=== PATIENT | male | born 1985 | race Caucasian/White ===

== ENCOUNTER 2016-03-31 22:32 | Emergency (ER) | payer OTHER ==
[~2016-03-31] VITALS: Ht 167.6 cm; Wt 78.0 kg
[~2016-03-31 22:32] MED LIST: BEN25 PO; CEPH-443 PO; IBUP800T25 PO; PRED20TA PO
[2016-03-31 23:09] VITALS: Ht 167.6 cm; Wt 78.0 kg
--- NOTE | 2016-03-31 23:36 | ERA ---
ER Documentation Chief Complaint Date/Time DATE: 03/31/16 TIME: 23:35 Chief Complaint Headache and abdominal pain HPI The patient is a 30-year-old male, presenting to the ER because of headache and abdominal pain and intermittent cough that began about 7 PM. The headache is of vague, denied dizziness, syncope, near syncope; the abdominal pain is diffuse , no radiation. He denies fever, chills, neck pain, chest pain, dyspnea. He denies dysuria, polyuria, diarrhea, constipation. He only vomited mucus, complains of muscle spasm. He smokes, denies drinking, denies illicit drug Past medical/surgical history: ROS All systems reviewed and are negative except as per history of present illness. Medications Home Meds Active Scripts Ibuprofen* (Motrin*) 600 Mg Tab, 600 MG PO Q6H Y for PAIN AND OR ELEVATED TEMP, #30 TAB Prov:SHEELA ZHOU MD 04/01/16 Diphenhydramine Hcl* (Benadryl*) 25 Mg Cap, 25 MG PO Q6 Y for ITCHING/RASH, #30 TAB Prov:ANYA HEARN DO 08/20/15 Cephalexin* (Keflex*) 500 Mg Capsule, 500 MG PO QID for 5 Days, CAP Prov:BORHANI,LAURAOSH DO 08/20/15 Prednisone* (Prednisone*) 20 Mg Tab, 40 MG PO DAILY for 4 Days, TAB Prov:BORHANI,LAURAOSH DO 08/20/15 Cephalexin* (Keflex*) 500 Mg Capsule, 500 MG PO QID for 7 Days, CAP Prov:BORKATHRYNINAYA DO 08/20/15 Diphenhydramine Hcl* (Benadryl*) 25 Mg Cap, 25 MG PO Q6 Y for ITCHING/RASH, #30 TAB Prov:BORKATHRYNINAYA DO 08/20/15 Prednisone* (Prednisone*) 20 Mg Tab, 40 MG PO DAILY for 4 Days, TAB Prov:BORKATHRYNINAYA DO 08/20/15 Ibuprofen* (Motrin*) 800 Mg Tab, 800 MG PO Q6H Y for PAIN AND OR ELEVATED TEMP, #30 TAB Prov:PHYLLIS SWANN MD 06/30/15 Allergies Allergies: Coded Allergies: No Known Allergy (Unverified , 08/20/15) PMhx/Soc History of Surgery: No Anesthesia Reaction: No Hx Neurological Disorder: No Hx Respiratory Disorders: No Hx Cardiac Disorders: No Hx Psychiatric Problems: No Hx Miscellaneous Medical Probl: No Hx Alcohol Use: No Hx Substance Use: No Hx Tobacco Use: No Physical Exam Vitals Vital Signs Date Time Temp Pulse Resp B/P Pulse Ox O2 Delivery O2 Flow Rate FiO2 04/01/16 03:09 99.2 73 18 102/55 100 Room Air 03/31/16 23:09 98.8 119 20 138/68 98 Physical Exam Const: No acute distress. Head: Atraumatic. Eyes: Normal Conjunctiva. ENT: Normal External Ears, Nose and Mouth. Neck: Full range of motion. No meningismus. Resp: Clear to auscultation bilaterally. Cardio: Regular rate and rhythm, no murmurs. Abd: Soft, non distended, normal bowel sounds, vague and diffuse abdominal tenderness, no rigidity, rebound, CVA tenderness Skin: No petechiae or rashes. Back: No midline or flank tenderness. Ext: No cyanosis, or edema. Neur: Awake and alert. No focal deficit Psych: Normal Mood and Affect. Result Diagram: 03/31/16 2348 03/31/16 2345 Results 24 hrs Laboratory Tests Test 03/31/16 23:45 03/31/16 23:48 04/01/16 00:50 04/01/16 00:53 Alanine Aminotransferase (ALT/SGPT) 34IU/L Albumin 4.9g/dl Albumin/Globulin Ratio 1.25 Alkaline Phosphatase 87IU/L Anion Gap 20 Aspartate Amino Transf (AST/SGOT) 26IU/L Blood Urea Nitrogen 11mg/dl Calcium Level 9.8mg/dl Carbon Dioxide Level 25mmol/L Chloride Level 100mmol/L Creatinine 0.92mg/dl Direct Bilirubin 0.00mg/dl Ethyl Alcohol Level < 10.0mg/dl Globulin 3.90g/dl Glucose Level 100mg/dl Indirect Bilirubin 1.1mg/dl Lipase 30U/L Potassium Level 3.9mmol/L Sodium Level 141mmol/L Total Bilirubin 1.1mg/dl Total Protein 8.8g/dl Basophils # 0.010^3/ul Basophils % 0.2% Eosinophils # 0.010^3/ul Eosinophils % 0.1% Hematocrit 47.6% Hemoglobin 16.2g/dl Lymphocytes # 0.910^3/ul Lymphocytes % 5.4% Mean Corpuscular Hemoglobin 29.5pg Mean Corpuscular Hemoglobin Concent 34.0g/dl Mean Corpuscular Volume 86.9fl Mean Platelet Volume 9.0fl Monocytes # 0.810^3/ul Monocytes % 5.3% Neutrophils # 13.910^3/ul Neutrophils % 89.0% Nucleated Red Blood Cells # 0.010^3/ul Nucleated Red Blood Cells % 0.0/100WBC Platelet Count 19698^3/UL Red Blood Count 5.4710^6/ul Red Cell Distribution Width 13.0% White Blood Count 15.610^3/ul Urine Amphetamines Screen NEGATIVE Urine Barbiturates NEGATIVE Urine Benzodiazepines Screen NEGATIVE Urine Cannabinoids NEGATIVE Urine Cocaine Screen NEGATIVE Urine Opiates Screen NEGATIVE Bedside Urine Blood Negative Bedside Urine Glucose (UA) Negative Bedside Urine Ketones (LAB) Trace Bedside Urine Leukocyte Esterase (L Negative Bedside Urine Nitrite (LAB) Negative Bedside Urine Protein (LAB) 2+ Bedside Urine pH (LAB) >=9.0 Current Medications Medications (Trade) Dose Ordered Sig/Hawa Route PRN Reason Start Time Stop Time Status Last Admin Dose Admin Sodium Chloride (NS) 1,000 ml @ 1,000 mls/hr Q1H STAT IV 03/31/16 23:42 04/01/16 00:41 DC 03/31/16 23:53 Ondansetron HCl (Zofran Inj) 4 mg ONCE STAT IV 03/31/16 23:42 03/31/16 23:45 DC 03/31/16 23:53 Lorazepam (Ativan) 1 mg ONCE ONCE IV 04/01/16 00:00 04/01/16 00:01 DC 03/31/16 23:53 Ketorolac Tromethamine (Toradol) 30 mg ONCE STAT IV 04/01/16 01:09 04/01/16 01:10 DC 04/01/16 02:02 Procedures/[place] [id number] Radiology Main Line: [phone] DIAGNOSTIC IMAGING REPORT Patient: ROXANE CORNEJO : 1985 Age: 30 Sex: M MR #: [id number] DOS: 03/31/16 2342 Ordering MD: SHEELA ZHOU MD Location: E/R Room/Bed: PROCEDURE: CHEST - 1 VIEW CLINICAL INDICATION: 30-year-old male with chest/abdominal pain. TECHNIQUE: A single frontal AP upright view of the chest was performed portably. The images were reviewed on a PACS workstation. COMPARISON: None. FINDINGS: The cardiomediastinal silhouette has a normal appearance. There is no evidence for an infiltrate. The pulmonary vascularity is within normal limits. There is no evidence for pneumothorax or pneumomediastinum. The osseous structures are intact. IMPRESSION: No evidence for active cardiopulmonary disease. .Cash Wesley MD, MD Date Time Electronically viewed and signed by .Cash Wesley MD, MD on 04/01/2016 00:28 .M/ CC: SHEELA ZHOU MD [place] [address] Radiology Main Line: [phone] DIAGNOSTIC IMAGING REPORT Patient: ROXANE CORNEJO : 1985 Age: 30 Sex: M MR #: [id number] DOS: 03/31/16 2342 Ordering MD: SHEELA ZHOU MD Location: E/R Room/Bed: PROCEDURE: CT BRAIN WITHOUT CONTRAST CLINICAL INDICATION: 30-year-old male with change in mental status and weakness. TECHNIQUE: The study was performed utilizing a [employer] 64-slice CT scanner. Direct axial sections were obtained from the foramen magnum to the vertex without the use of intravenous contrast material. Sagittal and coronal reformations were obtained. Automated exposure control and iterative reconstruction techniques were utilized for this examination. The images were viewed on a PACS workstation. CTD/vol = 45.0 mGy; Total Exam DLP = 810.3 mGy- cm. COMPARISON: None. FINDINGS: There is mild motion artifact limiting evaluation to some extent. The ventricles have a normal size, shape and position. There is no evidence for mass effect or midline shift. There are no intracranial areas of abnormal attenuation. There is no evidence for acute intra or extra-axial blood. The bony calvarium is intact. The partially visualized paranasal sinuses and mastoid air cells are without significant abnormal soft tissue. IMPRESSION: Unremarkable noncontrast CT scan of the brain. .Cash Wesley MD, Date Time Electronically viewed and signed by .Cash Wesley MD, on 04/01/2016 00:38 .M/ CC: SHEELA ZHOU MD [place] [address] Radiology Main Line: [phone] DIAGNOSTIC IMAGING REPORT Patient: ROXANE CORNEJO : 1985 Age: 30 Sex: M MR #: [id number] DOS: 03/31/16 2342 Ordering MD: SHEELA ZHOU MD Location: E/R Room/Bed: PROCEDURE: CT ABDOMEN/PELVIS WITHOUT CONTRAST CLINICAL INDICATION: 30-year-old male with abdominal pain. TECHNIQUE: The study was performed utilizing a [employer] VCT 64-slice CT scanner. Direct axial sections were obtained through the abdomen and pelvis without the use of intravenous contrast material. Sagittal and coronal reformations were obtained. Automated exposure control and iterative reconstruction techniques were utilized for this examination. The images were reviewed on a PACS workstation. CTD/vol = 11.8 mGy; Total Exam DLP = 761.8 mGy -cm. COMPARISON: None. FINDINGS: There is trace bibasilar subsegmental atelectasis. There is no evidence for significant pleural effusion. The liver has a normal size and contour without focal areas of abnormal density. No intrahepatic nor extrahepatic biliary ductal dilatation is seen. The gallbladder demonstrates no wall thickening nor pericholecystic fluid. No biliary stones are evident. The pancreas is without areas of abnormal attenuation. The spleen is identified and has a normal size without abnormal density. The adrenal glands are unremarkable. The right kidney is without abnormal density, calculi or obstruction. There is a nonobstructing mid-left renal 2 x 2 mm calculus on axial image 3-68. There is no evidence for hydroureteronephrosis.. The urinary bladder contains urine. There is mild retained stool within the ascending and transverse colon without obstruction. The appendix is visualized and is without abnormal thickening or surrounding inflammatory reaction. There is no significant free fluid. The aortoiliac vessels are without aneurysmal dilatation. The osseous structures are intact. IMPRESSION: 1. Nonobstructing 2 mm left mid renal calculus. 2. Retained stool without evidence for bowel obstruction. 3. No CT evidence for appendicitis. .Cash Wesley MD, Date Time Electronically viewed and signed by .Cash Wesley MD, MD on 04/01/2016 00:59 .M/ CC: SHEELA ZHOU MD MEDICAL MAKING DECISION: The patient is a 30-year-old male, presenting with acute anxiety, acute cephalgia of unclear etiology, acute left renal colic. He was treated with Ativan 1 mg IV for acute anxiety, Zofran 4 mg IV for nausea, Toradol 30 mg IV for abdominal pain and 1 L normal saline for acute clinical dehydration with good response. On multiple reevaluation, he felt well. Repeat abdominal exam was unremarkable. The differential diagnoses for acute headache considered include but are not limited to subarachnoid hemorrhage, occult trauma, CVA, meningitis, encephalitis, hypertension, tension, migraine, cluster, narcotic withdrawal, cervical spine disease. The differential diagnoses for acute abdominal pain considered include but are not limited to cholelithiasis, cholecystitis, cystitis, pancreatitis, hepatitis, gastritis, peptic ulcer disease, gastric ulcer, appendicitis, diverticulitis, cholangitis, choledocholithiasis, partial small bowel obstruction. Departure Diagnosis: Primary Impression: Acute anxiety Additional Impressions: Cephalgia Renal colic on left side Condition: Good Comments I discussed the findings with the patient. I advised the patient to follow-up with the primary physician in about 1-2 days, sooner if needed and return if any concern. The patient's blood pressure was elevated (>120/80) but appears stable without evidence of hypertension emergency or urgency. The patient was counseled about the risks of hypertension and urged to pursue outpatient monitoring and therapy within a week with their primary care physician. SHEELA ZHOU MD Mar 31, 2016 23:36
[2016-03-31] MEDS ORDERED: SOD CHLORIDE 0.9% 1,000 ML IV STA (23:42)
[2016-03-31] MEDS ORDERED: ONDANSETRON 4 MG INJ IV STA (23:42)
[2016-04-01] MEDS ORDERED: LORAZEPAM 2 MG INJ IV ONE
[2016-04-01 00:17] LABS: ALBUMIN 4.9 g/dl (3.3-4.9)
[2016-04-01 00:18] LABS: CHLORIDE 100 mmol/L (97-110); POTASSIUM 3.9 mmol/L (3.5-5.1); SODIUM 141 mmol/L (135-144)
[2016-04-01 00:20] LABS: ALBUMIN/GLOBULIN RATIO 1.25; ALKALINE PHOSPHATASE 87 IU/L (42-121); ANION GAP 20 (8-16); ASPARTATE AMINO TRANSFERASE 26 IU/L (15-46); BILIRUBIN,INDIRECT 1.1 mg/dl (0-1.1); BILIRUBIN,TOTAL 1.1 mg/dl (0.2-1.3); BLOOD UREA NITROGEN 11 mg/dl (7-20); CARBON DIOXIDE 25 mmol/L (21-31); CREATININE 0.92 mg/dl (0.61-1.24); GLUCOSE 100 mg/dl (70-220); TOTAL PROTEIN 8.8 g/dl (6.1-8.1)
[2016-04-01 00:21] LABS: ALANINE AMINOTRANSFERASE 34 IU/L (13-69); CALCIUM 9.8 mg/dl (8.4-10.2)
[2016-04-01 00:27] LABS: BASOPHILS % 0.2 % (0.0-2.0); EOSINOPHILS % 0.1 % (0.0-7.0); HEMATOCRIT 47.6 % (42.0-52.0); HEMOGLOBIN 16.2 g/dl (14.0-18.0); LYMPHOCYTES # 0.9 10^3/ul (0.8-2.9); LYMPHOCYTES % 5.4 % (15.0-51.0); MEAN CORPUSCULAR HEMOGLOBIN 29.5 pg (29.0-33.0); MEAN CORPUSCULAR VOLUME 86.9 fl (82.0-101.0); MONOCYTE # 0.8 10^3/ul (0.3-0.9); MONOCYTES % 5.3 % (0.0-11.0); NEUTROPHIL # 13.9 10^3/ul (1.6-7.5); PLATELET COUNT 351 10^3/UL (140-440); RED BLOOD COUNT 5.47 10^6/ul (4.70-6.10); UNCORRECTED WBC 15.6 10^3/ul (4.8-10.8); WHITE BLOOD COUNT 15.6 10^3/ul (4.8-10.8)
--- NOTE | 2016-04-01 00:28 | RADRPT ---
PROCEDURE: CHEST - 1 VIEW CLINICAL INDICATION: 30-year-old male with chest/abdominal pain. TECHNIQUE: A single frontal AP upright view of the chest was performed portably. The images were reviewed on a PACS workstation. COMPARISON: None. FINDINGS: The cardiomediastinal silhouette has a normal appearance. There is no evidence for an infiltrate. T he pulmonary vascularity is within normal limits. There is no evidence for pneumothorax or pneumomed iastinum. The osseous structures are intact. IMPRESSION: No evidence for active cardiopulmonary disease. .Cash Wesley MD, MD Date Time Electronically viewed and signed by .Cash Wesley MD, on 04/01/2016 00:28 .M/
[2016-04-01 00:30] LABS: CONDITION 1
--- NOTE | 2016-04-01 00:38 | RADRPT ---
PROCEDURE: CT BRAIN WITHOUT CONTRAST CLINICAL INDICATION: 30-year-old male with change in mental status and weakness. TECHNIQUE: The study was performed utilizing a [employer] VCT 64-slice CT scanner. Direct axia l sections were obtained from the foramen magnum to the vertex without the use of intravenous contra st material. Sagittal and coronal reformations were obtained. Automated exposure control and iterat presley reconstruction techniques were utilized for this examination. The images were viewed on a PACS workstation. CTD/vol = 45.0 mGy; Total Exam DLP = 810.3 mGy-cm. COMPARISON: None. FINDINGS: There is mild motion artifact limiting evaluation to some extent. The ventricles have a normal size , shape and position. There is no evidence for mass effect or midline shift. There are no intracra nial areas of abnormal attenuation. There is no evidence for acute intra or extra-axial blood. The bony calvarium is intact. The partially visualized paranasal sinuses and mastoid air cells are witho ut significant abnormal soft tissue. IMPRESSION: Unremarkable noncontrast CT scan of the brain. .Cash Wesley MD, MD Date Time Electronically viewed and signed by .Cash Wesley MD, on 04/01/2016 00:38 .M/
[2016-04-01 00:53] LABS: URINE BLOOD (Dip) POC Negative (NEGATIVE)
--- NOTE | 2016-04-01 00:59 | RADRPT ---
PROCEDURE: CT ABDOMEN/PELVIS WITHOUT CONTRAST CLINICAL INDICATION: 30-year-old male with abdominal pain. TECHNIQUE: The study was performed utilizing a [employer] VCT 64-slice CT scanner. Direct axia l sections were obtained through the abdomen and pelvis without the use of intravenous contrast mate rial. Sagittal and coronal reformations were obtained. Automated exposure control and iterative shruthi nstruction techniques were utilized for this examination. The [facility] CTD/vol = 11.8 mGy; Total Exam DLP = 761.8 mGy-cm. COMPARISON: None. FINDINGS: There is trace bibasilar subsegmental atelectasis. There is no evidence for significant pleural eff usion. The liver has a normal size and contour without focal areas of abnormal density. No intrahep atic nor extrahepatic biliary ductal dilatation is seen. The gallbladder demonstrates no wall [place] nor pericholecystic fluid. No biliary stones are evident. The pancreas is without areas of abno rmal attenuation. The spleen is identified and has a normal size without abnormal density. The adre nal glands are unremarkable. The right kidney is without abnormal density, calculi or obstruction. There is a nonobstructing mid-left renal 2 x 2 mm calculus on axial image 3-68. There is no evidenc e for hydroureteronephrosis.. The urinary bladder contains urine. There is mild retained stool withi n the ascending and transverse colon without obstruction. The appendix is visualized and is without abnormal thickening or surrounding inflammatory reaction. There is no significant free fluid. The aortoiliac vessels are without aneurysmal dilatation. The osseous structures are intact. IMPRESSION: 1. Nonobstructing 2 mm left mid renal calculus. 2. Retained stool without evidence for bowel obstruction. 3. No CT evidence for appendicitis. .Cash Wesley MD, MD Date Time Electronically viewed and signed by .Cash Wesley MD, MD on 04/01/2016 00:59 .M/
[2016-04-01] MEDS ORDERED: KETOROLAC 30 MG INJ IV STA (01:09)
[2016-04-01 01:44] LABS: ETHANOL < 10.0 mg/dl
[2016-04-01 02:31] LABS: BARBITURATES NEGATIVE (NEGATIVE); BENZODIAZEPINES NEGATIVE (NEGATIVE); CANNABINOIDS NEGATIVE (NEGATIVE); COCAINE NEGATIVE (NEGATIVE); OPIATES NEGATIVE (NEGATIVE)
[2016-04-01] MEDS ORDERED: IBUP-1542 PO (02:38)
[2016-04-01 03:09] VITALS: BP 102/55; PULSE 73; RESP 18; TEMP 99.2
== END 2016-04-01 03:10 | disposition home or self-care (01) ==
LOC: E/R 22:32
DX: F41.9 Anxiety disorder, unspecified (principal); N23 Unspecified renal colic; R07.9 Chest pain, unspecified
CPT/HCPCS: 36415; 70450; 71010; 74176; 80053; 80306; 80307; 81003; 83690; 85025; 96374; 96375; J1885; J2060; J2405; J7030; Z7502

== ENCOUNTER 2016-09-26 19:08 | Emergency (ER) | payer OTHER ==
[~2016-09-26] VITALS: Ht 177.8 cm; Wt 79.5 kg
[~2016-09-26 19:08] MED LIST changes: +IBUP-1542 PO
[2016-09-26 19:38] VITALS: Ht 177.8 cm; Wt 79.5 kg
[2016-09-26] MEDS ORDERED: SOD CHLORIDE 0.9% 1,000 ML IV ONE (21:00)
[2016-09-26 21:09] VITALS: BP 129/77; PULSE 62; RESP 16
[2016-09-26 21:13] LABS: ADD SCAN DIFF NO
[2016-09-26 21:15] LABS: BASOPHIL # 0.1 10^3/ul (0.0-0.1); BASOPHILS % 1.6 % (0.0-2.0); EOSINOPHILS # 0.2 10^3/ul (0.0-0.5); EOSINOPHILS % 2.6 % (0.0-7.0); HEMATOCRIT 47.5 % (42.0-52.0); HEMOGLOBIN 15.5 g/dl (14.0-18.0); LYMPHOCYTES # 1.7 10^3/ul (0.8-2.9); LYMPHOCYTES % 24.6 % (15.0-51.0); MEAN CORPUSCULAR HEMOGLOBIN 28.8 pg (29.0-33.0); MEAN CORPUSCULAR HGB CONC 32.6 g/dl (32.0-37.0); MEAN CORPUSCULAR VOLUME 88.1 fl (82.0-101.0); MEAN PLATELET VOLUME 10.2 fl (7.4-10.4); MONOCYTE # 0.7 10^3/ul (0.3-0.9); MONOCYTES % 9.7 % (0.0-11.0); NEUTROPHIL # 4.2 10^3/ul (1.6-7.5); NEUTROPHILS % 61.4 % (39.0-77.0); PLATELET COUNT 357 10^3/UL (140-415); RED BLOOD COUNT 5.39 10^6/ul (4.70-6.10); RED CELL DISTRIBUTION WIDTH 12.8 % (11.5-14.5); WHITE BLOOD COUNT 6.9 10^3/ul (4.8-10.8)
[2016-09-26 21:19] LABS: URINE BLOOD (Dip) POC Trace-intact (NEGATIVE)
[2016-09-26 21:29] LABS: URINE BLOOD (Dip) POC Trace-intact (NEGATIVE)
[2016-09-26 21:42] LABS: ALBUMIN 5.1 g/dl (3.3-4.9); ALBUMIN/GLOBULIN RATIO 1.45; BILIRUBIN,INDIRECT 0.4 mg/dl (0-1.1); BILIRUBIN,TOTAL 0.4 mg/dl (0.2-1.3); CALCIUM 9.8 mg/dl (8.4-10.2); CREATININE 1.03 mg/dl (0.61-1.24); POTASSIUM 3.9 mmol/L (3.5-5.1); TOTAL PROTEIN 8.6 g/dl (6.1-8.1)
[2016-09-26] MEDS ORDERED: ACET500C5 PO (22:15)
[2016-09-26] MEDS ORDERED: ONDA4TAB14 PO (22:15)
--- NOTE | 2016-09-26 23:36 | ERD ---
ER Documentation Chief Complaint Date/Time DATE: 09/26/16 TIME: 23:32 Chief Complaint dizziness 2 hours POND SCALER, sudden onset. "I don't feel right" HPI Patient is a 31-year-old male with no past medical history who presents to the ED with lightheadedness and dizziness 3 hours ago. He states that he was sitting there and developed slight lightheadedness. Denies headache or neck pain or neck stiffness. Denies fever or chills. States that he is mildly nauseous with no vomiting or diarrhea. Denies syncopal episode. Denies abdominal pain. Denies chest pain or cough or shortness of breath. Denies recent travel or recent surgeries. Denies leg pain or leg swelling. No other complaints. ROS All systems reviewed and are negative except as per history of present illness. Medications Home Meds Active Scripts Ondansetron (Ondansetron Odt) 4 Mg Tab.rapdis, 4 MG PO Q6H Y for NAUSEA AND/OR VOMITING, #10 TAB Prov:CARLY HALL PA-C 09/26/16 Acetaminophen* (Tylophen*) 500 Mg Capsule, 1 CAP PO Q6H Y for PAIN AND OR ELEVATED TEMP, #20 CAP Prov:CARLY HALL PA-C 09/26/16 Ibuprofen* (Motrin*) 600 Mg Tab, 600 MG PO Q6H Y for PAIN AND OR ELEVATED TEMP, #30 TAB Prov:SHEELA ZHOU MD 04/01/16 Diphenhydramine Hcl* (Benadryl*) 25 Mg Cap, 25 MG PO Q6 Y for ITCHING/RASH, #30 TAB Prov:NAYA HEARN DO 08/20/15 Cephalexin* (Keflex*) 500 Mg Capsule, 500 MG PO QID for 5 Days, CAP Prov:ZIONINAYA DO 08/20/15 Prednisone* (Prednisone*) 20 Mg Tab, 40 MG PO DAILY for 4 Days, TAB Prov:NAYA HEARN DO 08/20/15 Cephalexin* (Keflex*) 500 Mg Capsule, 500 MG PO QID for 7 Days, CAP Prov:NAYA HEARN DO 08/20/15 Diphenhydramine Hcl* (Benadryl*) 25 Mg Cap, 25 MG PO Q6 Y for ITCHING/RASH, #30 TAB Prov:NAYA HEARN DO 08/20/15 Prednisone* (Prednisone*) 20 Mg Tab, 40 MG PO DAILY for 4 Days, TAB Prov:NAYA HEARN DO 08/20/15 Ibuprofen* (Motrin*) 800 Mg Tab, 800 MG PO Q6H Y for PAIN AND OR ELEVATED TEMP, #30 TAB Prov:PHYLLIS SWANN MD 06/30/15 Allergies Allergies: Coded Allergies: No Known Allergy (Unverified , 08/20/15) PMhx/Soc History of Surgery: No Anesthesia Reaction: No Hx Neurological Disorder: No Hx Respiratory Disorders: No Hx Cardiac Disorders: No Hx Psychiatric Problems: No Hx Miscellaneous Medical Probl: No Hx Alcohol Use: No Hx Substance Use: No Hx Tobacco Use: Yes Smoking Status: Heavy tobacco smoker FmHx Family History: No coronary disease, No diabetes, No other Physical Exam Vitals Vital Signs Date Time Temp Pulse Resp B/P Pulse Ox O2 Delivery O2 Flow Rate FiO2 09/26/16 21:09 62 16 116/78 100 Room Air 67 130/78 62 129/77 09/26/16 19:38 99.0 66 18 131/85 99 Physical Exam GENERAL: Well-developed, well-nourished male. Appears in no acute distress. HEAD: Normocephalic, atraumatic. EYES: Pupils are equally reactive bilaterally. EOMs grossly intact. No conjunctival erythema. ENT: Moist mucous membranes. No uvula deviation. No kissing tonsils. No exudates. No nystagmus NECK: Supple. No lymphadenopathy or thyromegaly. No meningismus. negative kernig. negative brudinski. LUNG: Clear to auscultation bilaterally. No rhonchi, wheezing, rales or coarse breath sounds. HEART: Regular rate and rhythm. No murmurs, rubs or gallops. ABDOMEN: No scars, ecchymosis or rashes noted. Soft, nontender, and nondistended. Positive bowel sounds in all four quadrants. No rebound tenderness , no guarding. (-) McBurneys point tenderness. No CVA tenderness. BACK: No midline tenderness. Extremities: Equal pulses bilaterally. No peripheral clubbing, cyanosis or edema. No unilateral leg swelling. NEUROLOGIC: Alert and oriented. Moving all four extremities. 5/5 strength in all extremities. Normal speech. Steady gait. Cranial nerves II through XII intact. No ataxia. Negative Romberg test. SKIN: Normal color. Warm and dry. No rashes or lesions. Capillary refill < 2 seconds Result Diagram: 09/26/16210609/26/162106 Results 24 hrs Laboratory Tests Test 09/26/16 21:07 09/26/16 21:24 09/26/16 21:34 White Blood Count 6.910^3/ul Red Blood Count 5.3910^6/ul Hemoglobin 15.5g/dl Hematocrit 47.5% Mean Corpuscular Volume 88.1fl Mean Corpuscular Hemoglobin 28.8pg Mean Corpuscular Hemoglobin Concent 32.6g/dl Red Cell Distribution Width 12.8% Platelet Count 52412^3/UL Mean Platelet Volume 10.2fl Neutrophils % 61.4% Lymphocytes % 24.6% Monocytes % 9.7% Eosinophils % 2.6% Basophils % 1.6% Nucleated Red Blood Cells % 0.0/100WBC Neutrophils # 4.210^3/ul Lymphocytes # 1.710^3/ul Monocytes # 0.710^3/ul Eosinophils # 0.210^3/ul Basophils # 0.110^3/ul Nucleated Red Blood Cells # 0.010^3/ul Sodium Level 145mmol/L Potassium Level 3.9mmol/L Chloride Level 100mmol/L Carbon Dioxide Level 28mmol/L Anion Gap 21 Blood Urea Nitrogen 14mg/dl Creatinine 1.03mg/dl Glucose Level 92mg/dl Calcium Level 9.8mg/dl Total Bilirubin 0.4mg/dl Direct Bilirubin 0.00mg/dl Indirect Bilirubin 0.4mg/dl Aspartate Amino Transf (AST/SGOT) 25IU/L Alanine Aminotransferase (ALT/SGPT) 28IU/L Alkaline Phosphatase 70IU/L Total Protein 8.6g/dl Albumin 5.1g/dl Globulin 3.50g/dl Albumin/Globulin Ratio 1.45 Bedside Urine pH (LAB) 6.5 5.5 Bedside Urine Protein (LAB) Negative Trace Bedside Urine Glucose (UA) Negative Negative Bedside Urine Ketones (LAB) Negative Negative Bedside Urine Blood Trace-intact Trace-intact Bedside Urine Nitrite (LAB) Negative Negative Bedside Urine Leukocyte Esterase (L Negative Negative Current Medications Medications (Trade) Dose Ordered Sig/Hawa Route PRN Reason Start Time Stop Time Status Last Admin Dose Admin Sodium Chloride (NS) 1,000 ml @ 1,000 mls/hr Q1H ONCE IV 09/26/16 21:00 09/26/16 21:59 DC 09/26/16 21:11 Procedures/MDM ER COURSE: I kept the patient and/or family informed of laboratory and diagnostic imaging results throughout the emergency room course. EKG, MONITORS, & DIAGNOSTIC IMAGING: EKG performed, read by Dr. ordaz 62bpm, normal sinus rhythm, normal axis, no acute ST segment changes, no T wave inversion MEDICATIONS: Normal saline, Zofran and Tylenol. Tolerated well with no adverse reaction. LAB INTERPRETATION: CBC showed no evidence of systemic infection or severe anemia. CMP showed no evidence of electrolyte abnormalities, severe acidosis, alkalosis, renal failure , or liver disease. Lipase showed no evidence of acute pancreatitis. UA showed no evidence of leukocytes, nitrites or hematuria. MEDICAL DECISION MAKING: This is a 31-year-old male who presents with dizziness 1 day. Vital signs were reviewed. Patient is afebrile. Patient is not hypoxic. Patient is nontoxic or ill-appearing. Patient has dizziness of unknown etiology. Patient's EKG was within normal limits. Patient's orthostatic vitals were within normal limits. Patient's blood work within normal limits. No signs of electrolyte deficiency or abnormality. I reexamined patient after administration of fluids and medicine and he had improvement in symptoms and was ready to be discharged. Low suspicion for intracranial hemorrhage, meningitis, intracranial mass, concussion, temporal arteritis, stroke, elevated intracranial pressure, seizure. Risk versus benefits of the CT scan were discussed with patient and at this point the risks outweigh the benefits. Patient does not have any trauma and I have low suspicion for any cranial emergency. DISCHARGE: At this time, patient is stable for discharge and outpatient management with no new complaints during the ER course. Patient was sent home with Zofran and Tylenol and a copy of all imaging and laboratory studies per. Patient will be discharged home with instructions to recheck for new or worsening symptoms such as fever, nausea, weakness, LOC and to follow up with primary care in the next 1 -2 days. Patient was advised to return to the ER for any new or worsening symptoms. Plan was discussed and patient and/or family understands and agrees. Home instructions were given. Departure Diagnosis: Primary Impression: Dizziness Condition: Stable Patient Instructions: Dizziness, Unk Cause Referrals: [facility] YOU HAVE RECEIVED A MEDICAL SCREENING EXAM AND THE RESULTS INDICATE THAT YOU DO NOT HAVE A CONDITION THAT REQUIRES URGENT TREATMENT IN THE EMERGENCY DEPARTMENT. FURTHER EVALUATION AND TREATMENT OF YOUR CONDITION CAN WAIT UNTIL YOU ARE SEEN IN YOUR DOCTORS OFFICE WITHIN THE NEXT 1-2 DAYS. IT IS YOUR RESPONSIBILITY TO MAKE AN APPOINTMENT FOR FOLOW-UP CARE. IF YOU HAVE A PRIMARY DOCTOR --you should call your primary doctor and schedule an appointment IF YOU DO NOT HAVE A PRIMARY DOCTOR YOU CAN CALL OUR PHYSICIAN REFERRAL HOTLINE AT IF YOU CAN NOT AFFORD TO SEE A PHYSICIAN YOU CAN CHOSE FROM THE FOLLOWING [facility] [address] [facility] [address] [facility] [address] [facility] [address] [facility] [address] [facility]. [facility] [address] Additional Instructions: Call your primary care doctor TOMORROW for an appointment during the next 1-2 days.See the doctor sooner or return here if your condition worsens before your appointment time. CARLY HALL PA-C Sep 26, 2016 23:35
== END 2016-09-26 22:37 | disposition home or self-care (01) ==
LOC: FTE 19:08
DX: R42 Dizziness and giddiness (principal); F17.210 Nicotine dependence, cigarettes, uncomplicated
CPT/HCPCS: 80053; 81003; 85025; 93005; J7030